=== PATIENT | female | born 1965 | race Caucasian/White ===

== ENCOUNTER 2019-01-25 14:04 | Emergency (ER) | payer SELFPAY ==
[~2019-01-25] VITALS: Ht 185.4 cm; Wt 77.1 kg
[2019-01-25] MEDS ORDERED: diphenhydrAMINE HCL 50 MG/ML VIAL ONE (14:29)
[2019-01-25] MEDS ORDERED: diphenhydrAMINE HCL 50 MG/ML VIAL IV ONE (14:30)
[2019-01-25] MEDS ORDERED: FAMOTIDINE/PF INJ 20 MG/2 ML VIAL IV ONE ×2 (14:30)
[2019-01-25 14:39] LABS: BASOPHILS % (AUTO) 0.5 % (0.0-2.0); EOSINOPHILS % (AUTO) 4.3 % (0.0-6.0); HEMATOCRIT 41 % (33-45); HEMOGLOBIN 13.9 g/dL (11.5-14.8); LYMPHOCYTES # (AUTO) 0.7 /CMM (0.8-4.8); LYMPHOCYTES % (AUTO) 9.1 % (20.0-44.0); MEAN CORPUSCULAR HGB CONC 34 g/dl (31.0-36.0); MEAN CORPUSCULAR VOLUME 96 fL (82-100); MONOCYTES # (AUTO) 0.3 /CMM (0.1-1.30); MONOCYTES % (AUTO) 4.2 % (2.0-12.0); NEUTROPHILS # (AUTO) 6.7 /CMM (1.8-8.9); NEUTROPHILS % (AUTO) 81.9 % (43.0-81.0); PLATELET COUNT (AUTO) 365 /CMM (150-450); WHITE BLOOD COUNT (AUTO) 8.2 K/uL (4.3-11.0)
[2019-01-25 14:46] LABS: CALCIUM, SERUM 8.8 mg/dL (8.5-10.1); CREATININE 0.7 mg/dL (0.6-1.3); POTASSIUM 4.1 mmol/L (3.5-5.1)
[2019-01-25 14:52] LABS: ALBUMIN 4.2 g/dL (3.4-5.0); BILIRUBIN,TOTAL 0.2 mg/dL (0.2-1.0); TOTAL PROTEIN, SERUM 7.3 g/dL (6.4-8.2)
--- NOTE | 2019-01-25 14:52 | NUR ---
patient presented to the ER sent by urgent care MD pablo/mike [facility]. On room air, breathing evenly and unlabored. Connected to the monitor and pulse ox. Kept comfortable, will continue to monitor accordingly.
[2019-01-25 15:28] VITALS: BP 140/71
--- NOTE | 2019-01-25 15:29 | NUR ---
Patient discharged to home in stable condition. Written and verbal after care instructions given. Patient verbalizes understanding of instruction.IV removed. Catheter intact and site benign. Pressure and 4x4 applied to site. No bleeding noted.
== END 2019-01-25 15:29 | disposition home or self-care (01) ==
LOC: ER 14:06
DX: T78.40XA Allergy, unspecified, initial encounter (principal); L01.00 Impetigo, unspecified; X58.XXXA Exposure to other specified factors, initial encounter
CPT/HCPCS: 36415; 80053; 82962; 85025; 96374; 96375; 99283; J1200; J3490

== ENCOUNTER 2019-01-28 04:15 | Emergency (ER) | payer SELFPAY ==
[~2019-01-28] VITALS: Ht 185.4 cm; Wt 77.1 kg
[2019-01-28] MEDS ORDERED: methylPREDNISolone SOD SUCC 125 MG/2ML VIAL ONE (04:29)
[2019-01-28] MEDS ORDERED: diphenhydrAMINE HCL 50 MG/ML VIAL ONE ×2 (04:29→05:22)
[2019-01-28] MEDS ORDERED: diphenhydrAMINE HCL 50 MG/ML VIAL IV ONE ×2 (04:30→05:30)
[2019-01-28] MEDS ORDERED: IV NS 0.9% 1,000 ML BAG IV ONE (04:30)
[2019-01-28] MEDS ORDERED: FAMOTIDINE/PF INJ 20 MG/2 ML VIAL IV ONE ×3 (04:30)
[2019-01-28] MEDS ORDERED: methylPREDNISolone SOD SUCC 125 MG/2ML VIAL IV ONE (04:30)
--- NOTE | 2019-01-28 04:34 | NUR ---
PT BIB [facility] WITH A C/O ALLERGIC REACTION. PT'S EYELIDS AND UNDER EYES ARE PINK AND EDEMATOUS. PT'S MOUTH IS SLIGHTLY SWOLLEN. PT HAS RASH/REDNESS ON RT LOWER LEG/CHANDRA. PT WAS HERE EARLIER AND HAS BEEN TAKING BENADRYL AND PEPCID AT HOME PRESCRIBED. PT STATED THAT SHE WOKE UP AND THE ITCHINESS STARTED UP AGAIN WELL THE EDEMA AND ERRYTHEMA. PT IS AA&O X4. NO S/S OF DISTRESS. DENIES THROAT SWELLING. SPEAKS IN FULL SENTENCES.
[2019-01-28] MEDS ORDERED: EPINEPHRINE (1:1000) 1 MG/ML AMPUL ONE (04:54)
[2019-01-28] MEDS ORDERED: EPINEPHRINE (1:1000) MDV 30 MG/30ML VIAL SUBCUT ONE (05:00)
--- NOTE | 2019-01-28 05:49 | NUR ---
PT IS STILL ITCHY. NOTIFIED. NEW ORDERS GIVEN AND CARRIED OUT.
--- NOTE | 2019-01-28 06:06 | NUR ---
DR RAMIREZ IS AT THE BEDSIDE.
--- NOTE | 2019-01-28 06:22 | NUR ---
PT'S EDEMA IS GETTING BETTER AND THE REDNESS IS LESS THAN WHEN PT ARRIVED. PT'S VSS. PT IS TAKING A LIFT HOME. Patient discharged to home in stable condition. Written and verbal after care instructions given. Patient verbalizes understanding of instruction AND RX. PT AMBULATED TO THE BATHROOM WITH A STEADY GAIT.
[2019-01-28 06:23] VITALS: BP 164/89
== END 2019-01-28 06:24 | disposition home or self-care (01) ==
LOC: ER 04:15
DX: T78.40XA Allergy, unspecified, initial encounter (principal); L01.00 Impetigo, unspecified; X58.XXXA Exposure to other specified factors, initial encounter
CPT/HCPCS: 96374; 96375; 96376; 99283; J0171 ×2; J1200 ×2; J2930; J3490 ×2; J7030